=== PATIENT | female | born 1990 | race Caucasian/White ===

== ENCOUNTER 2021-10-19 04:45 | Inpatient (IN) | payer BC ==
[2021-10-19] MEDS ORDERED: diphenhydrAMINE 50 MG/ML VIAL ONE (05:09)
[2021-10-19] MEDS ORDERED: Metoclopramide HCl 10 MG/2 ML VIAL ONE (05:09)
[2021-10-19 05:16] LABS: #Eosinphils 0.4 thou/uL (0.0-0.7); #Monocytes 0.5 thou/uL (0.11-0.59); #Neutrophils 9.9 thou/uL (1.40-6.50); %Basophils 0.3 % (0.0-1.0); %Eosinophils 2.8 % (0.0-10.0); %Lymphocytes 26.9 % (21.0-51.0); %Monocytes 3.5 % (0.0-10.0); %Neutrophils 66.6 % (42.0-75.0); Hemoglobin 14.1 g/dL (12.0-16.0); Mean Corpuscular HGB CONC 32.7 g/dL (32.0-36.0); Mean Corpuscular Hemoglobin 33.4 pg (27.0-31.0); Mean Platelet Volume 8.6 fL (7.4-10.4); Platelet Count 121 thou/uL (130-400); RBC Distribution Width 11.5 % (11.5-14.5); Red Blood Cell (RBC) Count 4.24 mill/uL (4.20-5.40); White Blood Cell (WBC) Count 14.9 thou/uL (4.8-10.8)
[2021-10-19 05:28] LABS: PTT 33.8 sec (22.9-36.1); Prothrombin Time 13.7 sec (12.0-14.7)
[2021-10-19 05:37] LABS: BHCG - Serum Negative (NEGATIVE); Pregs Control Background? CLEAR/WHITE (CLR/WHITE); Pregs Control Bar Appear? YES (CONTROL BAR)
[2021-10-19 05:38] LABS: ALT (SGPT) 13 U/L (8-55); AST (SGOT) 11 U/L (5-34); Albumin 4.1 g/dL (3.5-5.0); Alkaline Phosphatase 65 U/L (40-110); Anion Gap 14 mmol/L (10-20); BUN (Urea Nitrogen) 9 mg/dL (7.0-18.7); Bilirubin, Total 0.3 mg/dL (0.2-1.2); Calc. Creatinine Clearance 0 mL/min (70-130); Calcium 8.9 mg/dL (7.8-10.44); Carbon Dioxide 21 mmol/L (22-29); Chloride 106 mmol/L (98-107); Globulin 3.4 g/dL (2.4-3.5); Glucose 99 mg/dL (70-105); Potassium 3.1 mmol/L (3.5-5.1); Protein, Total 7.5 g/dL (6.0-8.3); Sodium 138 mmol/L (136-145)
[2021-10-19] MEDS ORDERED: Lorazepam 2 MG/ML VIAL ONE ×4 (07:56→08:50)
[2021-10-19] MEDS ORDERED: levETIRAcetam in NS 200 ML ONE ×2 (07:57→07:59)
[2021-10-19] MEDS ORDERED: Heparin 10,000 UNITS/ 10 ML VIAL ONE (08:13)
[2021-10-19] MEDS ORDERED: Heparin 25,000 units/D5W 500 ML ONE (08:13)
[2021-10-19] MEDS ORDERED: Succinylcholine 200 MG/10 ml SYRINGE FS ONE (08:19)
[2021-10-19] MEDS ORDERED: PROPOFOL 20 ML ONE (08:20)
[2021-10-19] MEDS ORDERED: Propofol 1,000 MG/100 ML VIAL IV ONE (08:38)
[2021-10-19] MEDS ORDERED: levETIRAcetam in NS 100 ML ONE (08:57)
[2021-10-19] MEDS ORDERED: Fosphenytoin Sodium 400 MG in Sodium Chloride 0.9% 50 ML IVPB SCH (09:00)
[2021-10-19] MEDS ORDERED: Ventilator Sedation Protocol 1 EACH FS SCH (09:15)
[2021-10-19] MEDS ORDERED: levETIRAcetam in NS 1,000 MG in Premix Bag 1 BAG IVPB SCH ×2 (09:15→09:45)
[2021-10-19] MEDS ORDERED: Vancomycin 1 GM/200 ML BAG ONE (09:23)
[2021-10-19] MEDS ORDERED: Cefepime 2 GM VIAL ONE ×2 (09:23→09:24)
[2021-10-19 09:30] LABS: Actual Bicarbonate (HCO3a) 18.9 mEq/L (22-28); Analyzer IN Cardio ER; Base Excess (BEa) -4.8 mEq/L (-2.0 to +3.0); CO2 Tension 31.7 mmHg (35.0-45.0); Calcium, Ionized (arterial) 1.09 mmol/L (1.12-1.30); Carboxyhemoglobin (COHb) 0.6 gm% (0.0-3.0); Hemoglobin (Hb) 14.1 g/dL (12.0-16.0); Potassium - ABG Lab 2.94 mmol/L (3.70-5.30); pH, Arterial 7.39 (7.35-7.45)
[2021-10-19] MEDS ORDERED: Potassium Chloride 40 MEQ in Premix Bag 1 BAG IVPB SCH (09:30)
[2021-10-19] MEDS ORDERED: Propofol BOLUS 1,000 MG/100 ML VIAL IV PRN (09:45)
[2021-10-19] MEDS ORDERED: Lorazepam 2 MG/ML VIAL SLOW IVP PRN (09:45)
[2021-10-19] MEDS ORDERED: Morphine 4 MG/ML VIAL SLOW IVP PRN (09:45)
[2021-10-19] MEDS ORDERED: Propofol 1,000 MG/100 ML VIAL IV PRN (09:45)
[2021-10-19] MEDS ORDERED: Fentanyl BOLUS 250 ML IVPB PRN (09:45)
[2021-10-19] MEDS ORDERED: DISCONTINUE PREVIOUS NARCOTIC PAIN MEDICATIONS AND BENZODIAZEPINES FS SCH (09:45)
[2021-10-19] MEDS ORDERED: fentaNYL Citrate/PF 2,000 MCG in Sodium Chloride 0.9% 60 ML IV SCH (09:45)
[2021-10-19] MEDS ORDERED: cefTRIAXone\\ROCEPHIN 2 GM in Sodium Chloride 0.9% 100 ML IVPB SCH (10:00)
[2021-10-19 10:18] LABS: Puncture Site LRA
[2021-10-19 10:19] LABS: ALV-art Gradient 48.875 mmHg (0-20)
[2021-10-19] MEDS ORDERED: Ondansetron ODT 4 MG TAB SL PRN (11:00)
[2021-10-19] MEDS ORDERED: Ondansetron PF 4 MG/2 ML Vial IVP PRN (11:00)
[2021-10-19] MEDS ORDERED: Vancomycin HCl 500 MG in Sodium Chloride 0.9% 100 ML IVPB SCH (11:15)
[2021-10-19] MEDS ORDERED: Lacosamide 200 MG in Sodium Chloride 0.9% 50 ML IVPB SCH (11:38)
[2021-10-19 12:05] LABS: Lactic Acid 1.5 mmol/L (0.5-2.2)
[2021-10-19] MEDS ORDERED: Tacrolimus 1 MG CAP PO SCH (12:15)
[2021-10-19] MEDS ORDERED: predniSONE 5 MG TAB PO SCH (12:15)
[2021-10-19] MEDS ORDERED: Sulfameth/Trimethoprim DS 800-160mg TAB PO SCH (12:15)
[2021-10-19] MEDS ORDERED: Mycophenolate 250 MG CAP PO SCH (12:15)
[2021-10-19 12:16] LABS: SARS-CoV-2 NAA Rapid Test DETECTED (NotDetected)
[2021-10-19] MEDS: Ampicillin 2 GM in Sodium Chloride 0.9% 100 ML IVPB SCH ×4 (13:04→21:05)
[2021-10-19] MEDS ORDERED: Sodium Chloride 0.9% 1,000 ML IV SCH ×2 (13:45→17:30)
[2021-10-19 14:13] VITALS: BMI 22.8
[2021-10-19] MEDS ORDERED: levETIRAcetam in NS 1,500 MG in Premix Bag 1 BAG IVPB SCH (21:00)
[2021-10-19] MEDS: levETIRAcetam in NS 1,500 MG in Premix Bag 1 BAG IVPB SCH (21:04)
[2021-10-19] MEDS: Famotidine/PF 20 mg/2ml Vial SLOW IVP SCH (21:05)
[2021-10-19] MEDS: Lacosamide 200 MG in Sodium Chloride 0.9% 50 ML IVPB SCH (21:05)
[2021-10-19] MEDS: Vancomycin 1 GM in Premix Bag 1 BAG IVPB SCH (21:07)
[2021-10-19] MEDS: valGANciclovir 50 MG/ML ORAL SOLN PO SCH (21:07)
[2021-10-19] MEDS: cefTRIAXone\\ROCEPHIN 2 GM in Sodium Chloride 0.9% 100 ML IVPB SCH (21:10)
[2021-10-19] MEDS ORDERED: Tacrolimus 0.5 MG CAP PO SCH (23:00)
[2021-10-19 23:22] LABS: Anion Gap 11 mmol/L (10-20); BUN (Urea Nitrogen) 7 mg/dL (7.0-18.7); Calc. Creatinine Clearance 102 mL/min (70-130); Calcium 8.3 mg/dL (7.8-10.44); Carbon Dioxide 19 mmol/L (22-29); Chloride 119 mmol/L (98-107); Glucose 159 mg/dL (70-105); Magnesium 1.7 mg/dL (1.6-2.6); Potassium 3.9 mmol/L (3.5-5.1); Sodium 145 mmol/L (136-145)
[2021-10-20] MEDS ORDERED: Sodium Chloride 0.9% 1,000 ML IV SCH ×2 (00:15→21:00)
[2021-10-20] MEDS ORDERED: Norepinephrine 8 MG/0.9% NS 250 ML IVPB SCH (00:15)
[2021-10-20] MEDS: Ampicillin 2 GM in Sodium Chloride 0.9% 100 ML IVPB SCH ×6 (01:01→21:39)
[2021-10-20] MEDS: Vancomycin 1 GM in Premix Bag 1 BAG IVPB SCH ×2 (05:33→15:52)
[2021-10-20 07:08] LABS: #Eosinphils 0.3 thou/uL (0.0-0.7); #Lymphocytes 1.5 thou/uL (1.20-3.40); #Monocytes 0.3 thou/uL (0.11-0.59); %Basophils 0.2 % (0.0-1.0); %Eosinophils 3.8 % (0.0-10.0); %Lymphocytes 20.9 % (21.0-51.0); %Monocytes 3.5 % (0.0-10.0); %Neutrophils 71.6 % (42.0-75.0); Hemoglobin 11.2 g/dL (12.0-16.0); Mean Corpuscular Hemoglobin 34.4 pg (27.0-31.0); Platelet Count 51 thou/uL (130-400); RBC Distribution Width 11.6 % (11.5-14.5); Red Blood Cell (RBC) Count 3.26 mill/uL (4.20-5.40); White Blood Cell (WBC) Count 6.9 thou/uL (4.8-10.8)
[2021-10-20 07:21] LABS: Anion Gap 10 mmol/L (10-20); BUN (Urea Nitrogen) 10 mg/dL (7.0-18.7); Calc. Creatinine Clearance 77 mL/min (70-130); Calcium 7.9 mg/dL (7.8-10.44); Carbon Dioxide 17 mmol/L (22-29); Chloride 122 mmol/L (98-107); Glucose 118 mg/dL (70-105); Potassium 3.4 mmol/L (3.5-5.1); Sodium 146 mmol/L (136-145)
[2021-10-20] MEDS ORDERED: Atorvastatin Calcium 20 MG TAB PO SCH (09:00)
[2021-10-20] MEDS ORDERED: predniSONE 5 MG TAB PO SCH (09:00)
[2021-10-20] MEDS ORDERED: Amlodipine 5 MG TAB PO SCH (09:00)
[2021-10-20] MEDS: Famotidine/PF 20 mg/2ml Vial SLOW IVP SCH ×2 (09:22→21:40)
[2021-10-20] MEDS: levETIRAcetam in NS 1,500 MG in Premix Bag 1 BAG IVPB SCH ×2 (09:23→21:45)
[2021-10-20] MEDS: cefTRIAXone\\ROCEPHIN 2 GM in Sodium Chloride 0.9% 100 ML IVPB SCH (09:24)
[2021-10-20] MEDS: valGANciclovir 50 MG/ML ORAL SOLN PO SCH ×2 (09:24→21:48)
[2021-10-20 09:34] LABS: Actual Bicarbonate (HCO3a) 18.2 mEq/L (22-28); Base Excess (BEa) -3.5 mEq/L (-2.0 to +3.0); Calcium, Ionized (arterial) 1.23 mmol/L (1.12-1.30); Carboxyhemoglobin (COHb) 0.8 gm% (0.0-3.0); Hemoglobin (Hb) 12.2 g/dL (12.0-16.0); O2 Tension (PaO2), arterial 151.8 mmHg (80.0-100.0); Potassium - ABG Lab 3.41 mmol/L (3.70-5.30)
[2021-10-20 09:38] LABS: ALV-art Gradient 67.625 mmHg (0-20); CO2 Tension 24.1 mmHg (35.0-45.0); Puncture Site RRA
[2021-10-20] MEDS: Lacosamide 200 MG in Sodium Chloride 0.9% 50 ML IVPB SCH ×2 (09:46→21:41)
[2021-10-20] MEDS ORDERED: Tacrolimus 1 MG CAP PO SCH (11:00)
[2021-10-20 12:50] LABS: Vancomycin, Trough 31.4 ug/mL
[2021-10-20] MEDS ORDERED: Vancomycin 1 GM in Premix Bag 1 BAG IVPB SCH (13:15)
[2021-10-20] MEDS ORDERED: Vancomycin HCl 1 MG in Premix Bag 1 BAG IVPB SCH (13:15)
[2021-10-20 15:18] VITALS: BP 91/50
[2021-10-20] MEDS ORDERED: Sodium Chloride 0.9% 500 ML IV SCH (20:15)
[2021-10-20] MEDS ORDERED: Albumin 25% 25 GM/100 ML BOT IVPB SCH (21:30)
[2021-10-20] MEDS ORDERED: Phenylephrine 40 MG/NS 250 ML 40 MG in Premix Bag 1 BAG IVPB SCH (21:45)
[2021-10-20 22:19] VITALS: TEMP 97
[2021-10-21] MEDS ORDERED: Sulfameth/Trimethoprim DS 800-160mg TAB PO SCH (09:00)
== END 2021-10-20 21:00 | disposition expired | DRG 208 ==
LOC: ERS 04:45 → ERHOLD 08:20 → CCU 10:26
PROVIDERS: ADMIT Internal Medicine; ATTEND Internal Medicine
PROC: 5A1945Z Respiratory Ventilation, 24-96 Consecutive Hours (ICD-10-PCS; principal; 2021-10-19)
PROC: 0D9670Z Drainage of Stomach with Drainage Device, Via Natural or Artificial Opening (ICD-10-PCS; 2021-10-19)
PROC: 8E0ZXY6 Isolation (ICD-10-PCS; 2021-10-19)
PROC: 02HV33Z Insertion of Infusion Device into Superior Vena Cava, Percutaneous Approach (ICD-10-PCS; 2021-10-20)
DX: U07.1 COVID-19 (principal); I61.1 Nontraumatic intracerebral hemorrhage in hemisphere, cortical; G08 Intracranial and intraspinal phlebitis and thrombophlebitis; J96.90 Respiratory failure, unspecified, unspecified whether with hypoxia or hypercapnia; G93.6 Cerebral edema; G81.94 Hemiplegia, unspecified affecting left nondominant side; E87.2 Acidosis; E87.0 Hyperosmolality and hypernatremia; N17.9 Acute kidney failure, unspecified; Z94.2 Lung transplant status; G40.901 Epilepsy, unspecified, not intractable, with status epilepticus; E87.6 Hypokalemia; I27.20 Pulmonary hypertension, unspecified; G93.2 Benign intracranial hypertension; Z78.1 Physical restraint status; Z79.899 Other long term (current) drug therapy
CPT/HCPCS: 36415; 36600; 51701; 70450; 70496; 70498; 71045; 74018; 78610; 80048; 80053; 80202; 82805; 83605; 83735; 84703; 85025; 85610; 85730; 87040; 87086; 94002; 94003; 95816; 95819; 95957; 96365; 96366; 96368; 96375; 96376; 99292; A9521; C9254; J0290; J0692; J0696; J1200; J1644; J1953; J2060; J2704; J2765; J3370; J3480; J3490; J7030; J7050; J7507; J7512; J7517; P9047; S0028; U0002

== ENCOUNTER 2021-10-20 22:01 | Inpatient (IN) | payer OTHER ==
[2021-10-20] MEDS: Phenylephrine 40 MG/NS 250 ML 40 MG in Premix Bag 1 BAG IVPB SCH (23:00)
[2021-10-20] MEDS ORDERED: Tacrolimus 0.5 MG CAP PO SCH (23:00)
[2021-10-20] MEDS ORDERED: Hydrocortisone Sod Succ/PF 500 mg/4 ml Vial SLOW IVP SCH (23:15)
[2021-10-20] MEDS ORDERED: Refresh Lacri-lube Opth Oint 7 GM TUBE FS SCH (23:15)
[2021-10-20] MEDS: Sodium Chloride 0.45% 1,000 ML IV SCH (23:46)
[2021-10-20] MEDS: Piperacillin/Tazobactam 3.375 GM in Sodium Chloride 0.9% 100 ML IVPB SCH (23:47)
[2021-10-20] MEDS: Phytonadione 10 MG/ML AMP SLOW IVP SCH (23:49)
[2021-10-21 00:06] LABS: #Eosinphils 0.2 thou/uL (0.0-0.7); #Lymphocytes 1.1 thou/uL (1.20-3.40); #Monocytes 0.2 thou/uL (0.11-0.59); #Neutrophils 4.9 thou/uL (1.40-6.50); %Basophils 0.5 % (0.0-1.0); %Eosinophils 3.6 % (0.0-10.0); %Lymphocytes 16.8 % (21.0-51.0); %Monocytes 2.5 % (0.0-10.0); %Neutrophils 76.7 % (42.0-75.0); Hemoglobin 11.1 g/dL (12.0-16.0); Mean Corpuscular HGB CONC 32.4 g/dL (32.0-36.0); Mean Corpuscular Hemoglobin 33.8 pg (27.0-31.0); Mean Platelet Volume 9.3 fL (7.4-10.4); Platelet Count 36 thou/uL (130-400); Red Blood Cell (RBC) Count 3.29 mill/uL (4.20-5.40); White Blood Cell (WBC) Count 6.3 thou/uL (4.8-10.8)
[2021-10-21 00:16] LABS: Hemoglobin A1c 4.9 % (4.0-6.0)
[2021-10-21 00:21] LABS: INR-International Normal Ratio 1.4; Prothrombin Time 17.4 sec (12.0-14.7)
[2021-10-21 00:22] LABS: PTT 43.8 sec (22.9-36.1)
[2021-10-21 00:41] LABS: Bilirubin Negative (Negative); Blood, Urine Trace (Negative); Clarity Clear (Clear); Glucose, Urine (Dipstick) Normal (Negative); Ketone, Urine Negative (Negative); Leukocyte Negative Leu/uL (Negative); Nitrite Negative (Negative); Protein, Urine (Dipstick) Negative (Neg-Trace); Specific Gravity, Urine 1.005 (1.002-1.036); Urobilinogen Normal mg/dL (Less than 2); pH, Urine 5.5 (5.0-9.0)
[2021-10-21 00:44] LABS: ALT (SGPT) 46 U/L (8-55); AST (SGOT) 52 U/L (5-34); Albumin 2.9 g/dL (3.5-5.0); Alkaline Phosphatase 43 U/L (40-110); Anion Gap 8 mmol/L (10-20); BUN (Urea Nitrogen) 13 mg/dL (7.0-18.7); Bilirubin, Direct 0.2 mg/dL (0.1-0.3); Bilirubin, Total 0.3 mg/dL (0.2-1.2); CK (CPK) 409 U/L (29-168); Calc. Creatinine Clearance 0 mL/min (70-130); Calcium 8.1 mg/dL (7.8-10.44); Carbon Dioxide 15 mmol/L (22-29); Chloride 135 mmol/L (98-107); Globulin 2.5 g/dL (2.4-3.5); Glucose 93 mg/dL (70-105); Lipase 358 U/L (8-78); Magnesium 1.8 mg/dL (1.6-2.6); Phosphorus Less than 1.0 mg/dL (2.3-4.7); Potassium 3.2 mmol/L (3.5-5.1); Protein, Total 5.4 g/dL (6.0-8.3); Sodium 155 mmol/L (136-145)
[2021-10-21] MEDS ORDERED: Potassium Phosphate 40 MMOL in Sodium Chloride 0.9% 500 ML IVPB SCH (01:30)
[2021-10-21] MEDS ORDERED: Magnesium Sulfate 4 GM in Sodium Chloride 0.9% 250 ML 250 ML IVPB SCH (01:30)
[2021-10-21] MEDS ORDERED: Albumin 25% 25 GM/100 ML BOT IVPB SCH (02:05)
[2021-10-21] MEDS ORDERED: Albumin 5% 0 ML ONE (02:28)
[2021-10-21] MEDS ORDERED: Albumin 25% 100 ML ONE (02:29)
[2021-10-21] MEDS: Phytonadione 10 MG/ML AMP SLOW IVP SCH (03:15)
[2021-10-21] MEDS: Hydrocortisone Sod Succ/PF 100 mg/2 ml Vial IVP SCH ×2 (06:23→14:17)
[2021-10-21] MEDS: Piperacillin/Tazobactam 3.375 GM in Sodium Chloride 0.9% 100 ML IVPB SCH ×3 (06:23→17:14)
[2021-10-21] MEDS: Phenylephrine 40 MG/NS 250 ML 40 MG in Premix Bag 1 BAG IVPB SCH (06:25)
[2021-10-21 06:32] LABS: #Eosinphils 0.1 thou/uL (0.0-0.7); #Lymphocytes 0.7 thou/uL (1.20-3.40); #Monocytes 0.1 thou/uL (0.11-0.59); #Neutrophils 8.4 thou/uL (1.40-6.50); %Eosinophils 0.5 % (0.0-10.0); %Lymphocytes 7.1 % (21.0-51.0); %Monocytes 1.2 % (0.0-10.0); %Neutrophils 91.2 % (42.0-75.0); Hemoglobin 10.8 g/dL (12.0-16.0); Mean Corpuscular HGB CONC 32.4 g/dL (32.0-36.0); Mean Corpuscular Hemoglobin 34.1 pg (27.0-31.0); Mean Platelet Volume 9.5 fL (7.4-10.4); Platelet Count 52 thou/uL (130-400); Red Blood Cell (RBC) Count 3.17 mill/uL (4.20-5.40); White Blood Cell (WBC) Count 9.2 thou/uL (4.8-10.8)
[2021-10-21 06:38] LABS: INR-International Normal Ratio 1.5; Prothrombin Time 18.1 sec (12.0-14.7)
[2021-10-21 06:39] LABS: PTT 37.8 sec (22.9-36.1)
[2021-10-21 06:46] LABS: Hemoglobin A1c 4.7 % (4.0-6.0)
[2021-10-21] MEDS ORDERED: Vasopressin 20 UNIT, Admixture Fee 1 EACH in Sodium Chloride 0.9% 50 ML IV SCH (07:15)
[2021-10-21 07:28] LABS: ALT (SGPT) 39 U/L (8-55); AST (SGOT) 43 U/L (5-34); Albumin 3.9 g/dL (3.5-5.0); Alkaline Phosphatase 105 U/L (40-110); Anion Gap 13 mmol/L (10-20); BUN (Urea Nitrogen) 13 mg/dL (7.0-18.7); Bilirubin, Direct 0.5 mg/dL (0.1-0.3); Bilirubin, Total 0.7 mg/dL (0.2-1.2); CK (CPK) 320 U/L (29-168); Calc. Creatinine Clearance 0 mL/min (70-130); Calcium 7.9 mg/dL (7.8-10.44); Carbon Dioxide 16 mmol/L (22-29); Chloride 137 mmol/L (98-107); Critical Call Chemistry ADM.RJP; Globulin 2.1 g/dL (2.4-3.5); Glucose 107 mg/dL (70-105); Lipase 286 U/L (8-78); Magnesium 3.6 mg/dL (1.6-2.6); Phosphorus 4.6 mg/dL (2.3-4.7); Potassium 4.4 mmol/L (3.5-5.1); Sodium 162 mmol/L (136-145)
[2021-10-21] MEDS ORDERED: Sodium Chloride 0.45% 1,000 ML IV SCH ×2 (08:30→15:45)
[2021-10-21] MEDS ORDERED: predniSONE 5 MG TAB PO SCH (09:00)
[2021-10-21] MEDS: Sodium Chloride 0.45% 1,000 ML IV SCH (09:18)
[2021-10-21] MEDS ORDERED: Dextrose 5% in Water 1,000 ML IV SCH (09:45)
[2021-10-21 10:07] LABS: Lactic Acid 0.7 mmol/L (0.5-2.2)
[2021-10-21] MEDS: Albuterol Sulfate 2.5 mg/0.5 ml Neb NEB SCH ×2 (10:21→15:00)
[2021-10-21] MEDS ORDERED: Iopamidol 370 76% 100 ML VIAL ONE (10:42)
[2021-10-21] MEDS ORDERED: Tacrolimus 1 MG CAP PO SCH (11:00)
[2021-10-21 13:02] LABS: #Lymphocytes 0.7 thou/uL (1.20-3.40); #Monocytes 0.1 thou/uL (0.11-0.59); #Neutrophils 10.1 thou/uL (1.40-6.50); %Basophils 0.1 % (0.0-1.0); %Eosinophils 0.1 % (0.0-10.0); %Lymphocytes 6.1 % (21.0-51.0); %Neutrophils 92.8 % (42.0-75.0); Hemoglobin 11.2 g/dL (12.0-16.0); Mean Corpuscular Hemoglobin 33.6 pg (27.0-31.0); Mean Platelet Volume 9.1 fL (7.4-10.4); Platelet Count 64 thou/uL (130-400); RBC Distribution Width 12.1 % (11.5-14.5); Red Blood Cell (RBC) Count 3.33 mill/uL (4.20-5.40); White Blood Cell (WBC) Count 10.9 thou/uL (4.8-10.8)
[2021-10-21 13:05] LABS: INR-International Normal Ratio 1.4; PTT 36.1 sec (22.9-36.1); Prothrombin Time 17.6 sec (12.0-14.7)
[2021-10-21 13:09] LABS: Lactic Acid 0.7 mmol/L (0.5-2.2)
[2021-10-21 14:23] LABS: ALT (SGPT) 41 U/L (8-55); AST (SGOT) 38 U/L (5-34); Albumin 3.8 g/dL (3.5-5.0); Alkaline Phosphatase 110 U/L (40-110); Anion Gap 15 mmol/L (10-20); BUN (Urea Nitrogen) 10 mg/dL (7.0-18.7); Bilirubin, Direct 0.2 mg/dL (0.1-0.3); Bilirubin, Total 0.3 mg/dL (0.2-1.2); CK (CPK) 284 U/L (29-168); Calc. Creatinine Clearance 0 mL/min (70-130); Calcium 8.3 mg/dL (7.8-10.44); Carbon Dioxide 16 mmol/L (22-29); Chloride 132 mmol/L (98-107); Globulin 2.8 g/dL (2.4-3.5); Glucose 162 mg/dL (70-105); Lipase 170 U/L (8-78); Magnesium 2.8 mg/dL (1.6-2.6); Phosphorus 5.8 mg/dL (2.3-4.7); Potassium 3.7 mmol/L (3.5-5.1); Protein, Total 6.6 g/dL (6.0-8.3); Sodium 159 mmol/L (136-145)
[2021-10-21 14:54] VITALS: BP 151/101
[2021-10-21 15:29] VITALS: TEMP 99.3
[2021-10-21] MEDS ORDERED: Potassium Chloride 20 MEQ in Premix Bag 1 BAG IVPB SCH (15:30)
[2021-10-21 15:37] LABS: Bilirubin Negative (Negative); Blood, Urine 1+ (Negative); Clarity Turbid (Clear); Glucose, Urine (Dipstick) Normal (Negative); Ketone, Urine Negative (Negative); Leukocyte 500 Leu/uL (Negative); Nitrite Negative (Negative); Protein, Urine (Dipstick) 10 mg/dL (Neg-Trace); Urobilinogen Normal mg/dL (Less than 2)
[2021-10-21 16:10] LABS: Actual Bicarbonate (HCO3a) 16.6 mEq/L (22-28); Base Excess (BEa) -9.9 mEq/L (-2.0 to +3.0); CO2 Tension 38.8 mmHg (35.0-45.0); Calcium, Ionized (arterial) 1.12 mmol/L (1.12-1.30); Carboxyhemoglobin (COHb) 0.2 gm% (0.0-3.0); Hemoglobin (Hb) 11.8 g/dL (12.0-16.0); O2 Tension (PaO2), arterial 107.1 mmHg (80.0-100.0); Puncture Site Arterial Line; pH, Arterial 7.25 (7.35-7.45)
[2021-10-21 17:09] LABS: SARS-CoV-2 NAA Rapid Test Not Detected (NotDetected)
[2021-10-21] MEDS ORDERED: Sodium Bicarb 50 MEQ/50 ML VIAL ONE (17:12)
[2021-10-21] MEDS ORDERED: Sodium Bicarb 50 MEQ/50 ML VIAL IVP SCH (17:30)
[2021-10-21 17:57] LABS: #Lymphocytes 0.5 thou/uL (1.20-3.40); #Monocytes 0.2 thou/uL (0.11-0.59); #Neutrophils 11.3 thou/uL (1.40-6.50); %Basophils 0.1 % (0.0-1.0); %Eosinophils 0.1 % (0.0-10.0); %Lymphocytes 4.1 % (21.0-51.0); %Monocytes 1.6 % (0.0-10.0); %Neutrophils 94.2 % (42.0-75.0); Hemoglobin 11.1 g/dL (12.0-16.0); Mean Corpuscular HGB CONC 31.9 g/dL (32.0-36.0); Mean Corpuscular Hemoglobin 33.6 pg (27.0-31.0); Mean Platelet Volume 9.9 fL (7.4-10.4); Platelet Count 52 thou/uL (130-400); RBC Distribution Width 12.4 % (11.5-14.5); Red Blood Cell (RBC) Count 3.31 mill/uL (4.20-5.40)
[2021-10-21 18:05] LABS: INR-International Normal Ratio 1.4; Prothrombin Time 17.8 sec (12.0-14.7)
[2021-10-21 18:06] LABS: PTT 41.5 sec (22.9-36.1)
[2021-10-21 18:26] LABS: ALT (SGPT) 38 U/L (8-55); AST (SGOT) 32 U/L (5-34); Albumin 3.7 g/dL (3.5-5.0); Alkaline Phosphatase 100 U/L (40-110); Anion Gap 15 mmol/L (10-20); BUN (Urea Nitrogen) 9 mg/dL (7.0-18.7); Bilirubin, Direct 0.2 mg/dL (0.1-0.3); Bilirubin, Total 0.3 mg/dL (0.2-1.2); CK (CPK) 235 U/L (29-168); Calc. Creatinine Clearance 0 mL/min (70-130); Carbon Dioxide 18 mmol/L (22-29); Globulin 2.9 g/dL (2.4-3.5); Glucose 202 mg/dL (70-105); Lipase 158 U/L (8-78); Magnesium 2.5 mg/dL (1.6-2.6); Phosphorus 6.3 mg/dL (2.3-4.7); Protein, Total 6.6 g/dL (6.0-8.3); Sodium 157 mmol/L (136-145)
[2021-10-21 18:40] LABS: Chloride 128 mmol/L (98-107)
== END 2021-10-21 19:50 | disposition expired | DRG 951 ==
LOC: SJX 22:01 → CCU 22:56
PROVIDERS: ADMIT Internal Medicine; ATTEND Internal Medicine
PROC: 03HC33Z Insertion of Infusion Device into Left Radial Artery, Percutaneous Approach (ICD-10-PCS; principal; 2021-10-20)
DX: Z52.9 Donor of unspecified organ or tissue (principal); G08 Intracranial and intraspinal phlebitis and thrombophlebitis; Z94.2 Lung transplant status; I62.9 Nontraumatic intracranial hemorrhage, unspecified; N17.9 Acute kidney failure, unspecified; E87.0 Hyperosmolality and hypernatremia; Z20.822 Contact with and (suspected) exposure to COVID-19; G40.901 Epilepsy, unspecified, not intractable, with status epilepticus
CPT/HCPCS: 36415; 36430; 71045; 71260; 74177; 80053; 81003; 82150; 82248; 82550; 82805; 83036; 83605; 83690; 83735; 84100; 84484; 85025; 85384; 85610; 85730; 86850; 86900; 86901; 93005; 93010; 93306; 94003; 94640; J1720; J2543; J3430; J3475; J3480; J3490; J7030; J7050; J7507; J7512; J7611; J8499; P9035; P9047; Q9967; U0002